=== PATIENT | male | born 1990 | race Caucasian/White ===

== ENCOUNTER 2017-03-18 22:07 | Inpatient (IN) | payer OTHER ==
[~2017-03-18] VITALS: Ht 172.7 cm; Wt 75.0 kg
[~2017-03-18 22:07] MED LIST: ASPEC325 PO; ENOX30IN4 SQ; OXYC-57 PO
[2017-03-18] MEDS ORDERED: ONDANSETRON INJ 2 MG/ML 2 ML VIAL IV STA (22:56)
[2017-03-18] MEDS ORDERED: MoRPHine SULFATE 4 MG/ML 1 ML CARP\\VIAL IV STA (22:56)
[2017-03-18 23:16] LABS: BASO % 0.1 %; BASO ABS # 0.01 K/uL (0-0.2); COMPLETE YES; EOS % 0.9 %; HEMATOCRIT 40.8 % (42-52); IG% 0.3 %; LYMPH ABS # 2.08 K/uL (1.2-3.4); MEAN CORPUSCULAR HGB CONC 35.8 g/dl (32-36); MONO % 4.3 %; NEUT % 67.4 %; PLATELET COUNT 197 K/uL (130-400); RED BLOOD COUNT 5.04 M/uL (4.7-6.1); WHITE BLOOD COUNT 7.69 K/uL (4.8-10.8)
[2017-03-18] MEDS ORDERED: HYDROmorphone INJ 1 MG/ML SYR IV STA ×2 (23:24→23:49)
[2017-03-18 23:29] LABS: URINE APPEARANCE CLEAR (CLEAR); URINE BILIRUBIN NEG (NEG); URINE COLOR YELLOW; URINE NITRITE NEG (NEG); URINE SPECIFIC GRAVITY 1.008 (1.000-1.030); UROBILINOGEN NEG (NEG); ZZUR CULT IF INDIC CLEAN CATCH NO
[2017-03-18 23:33] LABS: MANUAL MICROSCOPIC REQUIRED? NO; REVIEW REQ? NO
[2017-03-18 23:36] LABS: BLOOD UREA NITROGEN 10 mg/dl (7-18); C-REACTIVE PROTEIN < 0.29 mg/dl (0-0.29); CALCIUM 8.8 mg/dl (8.5-10.1); CARBON DIOXIDE 27 mmol/L (21-32); CHLORIDE 108 mmol/L (98-107); CREATININE 0.85 mg/dl (0.60-1.40); GLUCOSE 90 mg/dl (70-99); SODIUM 144 mmol/L (136-145)
[2017-03-19] VITALS (7 sets, daily range): BP systolic 105–122; BP diastolic 63–72; PULSE 61–66; TEMP 36.4–36.7; O2SAT 97–100; Ht 172.7 cm; Wt 75.0 kg
[2017-03-19] MEDS ORDERED: GADAVIST IV PRN (01:45)
--- NOTE | 2017-03-19 02:55 | EMERGENCY ROOM VISIT NOTE ---
History First contact with patient: 22:32 Chief Complaint: BACK PAIN Stated Complaint: SEVERE LOW BACK PAIN-LEFT LEG PAIN History of Present Illness The patient is a 26 year old male who presents to the Emergency Room with complaints of left lower back pain that raised his leg with numbness and tingling and inability to walk for the past day. Patient had 2 back surgeries of laminectomies. Last was March 05. He had a stent in [place] by Dr. Esau Rosario. Patient states he got up to go the bathroom and had severe pain and could not walk. He is present pain as severe, 10 out of 10. Movement makes it worse and nothing makes it better. Patient denies chest pain, dyspnea, fever, chills, loss of bowel or bladder control, saddle anesthesia, IV drug abuse. Patient states he is able to move the leg but is extremely painful for him. No foot drop. Review of Systems See HPI for pertinent positives & negatives. A total of 10 systems reviewed and were otherwise negative. Past Medical/Surgical History Back pain, laminectomy Social History Smoking Status: Never Smoker Smokeless Tobacco Use: No Alcohol Use: none Drug Use: none Housing Status: lives with family Current/Historical Medications No Active Prescriptions or Reported Meds Allergies Coded Allergies: No Known Allergies (Unverified , 03/18/17) Physical Exam Vital Signs Date Time Temp Pulse Resp B/P (MAP) Pulse Ox O2 Delivery O2 Flow Rate FiO2 03/19/17 03:14 64 16 104/58 98 Room Air 03/19/17 01:24 74 16 103/52 97 Room Air 03/18/17 23:16 67 20 117/55 97 Room Air 03/18/17 22:13 36.3 68 22 139/82 97 Room Air Physical Exam VITALS: Vitals are noted on the nurse's note and reviewed by myself. Vital signs stable. GENERAL: White male in obvious pain, in no acute distress, nondiaphoretic, well- developed well-nourished. SKIN: The skin was without rashes, erythema, edema, or bruising. There is no tenting of the skin. Capillary reflex less than 2 seconds. HEAD: Normocephalic atraumatic. EARS: External auditory canals clear, tympanic membranes pearly morrow without erythema or effusion bilaterally. EYES: Pupils equal round and reactive to light and accommodation. Conjunctivae without injection, sclerae without icterus. Extraocular movements intact. NOSE: Patent, turbinates without inflammation or discharge. MOUTH: Mucous membranes moist. Pharynx without erythema or exudate. Uvula midline. Airway patent. Tongue does not deviate. NECK: Supple without nuchal rigidity. No lymphadenopathy. No thyromegaly. Cervical spine is nontender. No JVD. HEART: Regular rate and rhythm without murmurs gallops or rubs. LUNGS: Clear to auscultation bilaterally without wheezes, rales or rhonchi. No dullness to percussion. No retractions or accessory muscle use. ABDOMEN: Positive bowel sounds x 4. Normal tympanic percussion. Soft, nontender, without masses or organomegaly. Ott sign negative. No guarding or rebound tenderness. MUSCULOSKELETAL: No muscle atrophy, erythema, or edema noted. No thoracic tenderness on exam. Laminectomy site intact without signs of infection. L4 5 area tender to palpation and right lower lumbar region tender to palpation. Positive straight leg raise on the left. Patellar reflexes +2 equal present bilaterally. Increased pain with range of motion of the left leg. Patient is unable and unwilling to ambulate. No foot drop. NEURO: Patient was alert and oriented to person place and time. Normal sensation to light and sharp touch. No focal neurological deficits. Medical Decision & Procedures Laboratory Results 03/18/17 23:05 Red Blood Count 5.04, Mean Corpuscular Volume 81.0, Mean Corpuscular Hemoglobin 29.0, Mean Corpuscular Hemoglobin Concent 35.8, Mean Platelet Volume 9.0, Neutrophils (%) (Auto) 67.4, Lymphocytes (%) (Auto) 27.0, Monocytes (%) (Auto) 4.3, Eosinophils (%) (Auto) 0.9, Basophils (%) (Auto) 0.1, Neutrophils # (Auto) 5.18, Lymphocytes # (Auto) 2.08, Monocytes # (Auto) 0.33, Eosinophils # (Auto) 0.07, Basophils # (Auto) 0.01 03/18/17 23:05 Test 03/18/17 23:05 03/18/17 23:10 03/18/17 23:11 White Blood Count 7.69 K/uL (4.8-10.8) Red Blood Count 5.04 M/uL (4.7-6.1) Hemoglobin 14.6 g/dL (14.0-18.0) Hematocrit 40.8 % (42-52) Mean Corpuscular Volume 81.0 fL (80-100) Mean Corpuscular Hemoglobin 29.0 pg (25-34) Mean Corpuscular Hemoglobin Concent 35.8 g/dl (32-36) Platelet Count 197 K/uL (130-400) Mean Platelet Volume 9.0 fL (7.4-10.4) Neutrophils (%) (Auto) 67.4 % Lymphocytes (%) (Auto) 27.0 % Monocytes (%) (Auto) 4.3 % Eosinophils (%) (Auto) 0.9 % Basophils (%) (Auto) 0.1 % Neutrophils # (Auto) 5.18 K/uL (1.4-6.5) Lymphocytes # (Auto) 2.08 K/uL (1.2-3.4) Monocytes # (Auto) 0.33 K/uL (0.11-0.59) Eosinophils # (Auto) 0.07 K/uL (0-0.5) Basophils # (Auto) 0.01 K/uL (0-0.2) RDW Standard Deviation 34.6 fL (36.4-46.3) RDW Coefficient of Variation 12.0 % (11.5-14.5) Immature Granulocyte % (Auto) 0.3 % Immature Granulocyte # (Auto) 0.02 K/uL (0.00-0.02) Erythrocyte Sedimentation Rate 2 mm/hr (0-14) Anion Gap 9.0 mmol/L (3-11) Est Creatinine Clear Calc Drug Dose 128.5 ml/min Estimated GFR () 140.4 Estimated GFR (Non- 121.1 BUN/Creatinine Ratio 12.0 (10-20) Calcium Level 8.8 mg/dl (8.5-10.1) C-Reactive Protein < 0.29 mg/dl (0-0.29) Bedside Lactic Acid Venous 0.73 mmol/L (0.90-1.70) Urine Color YELLOW Urine Appearance CLEAR (CLEAR) Urine pH 6.0 (4.5-7.5) Urine Specific [place] 1.008 (1.000-1.030) Urine Protein NEG (NEG) Urine Glucose (UA) NEG (NEG) Urine Ketones NEG (NEG) Urine Occult Blood NEG (NEG) Urine Nitrite NEG (NEG) Urine Bilirubin NEG (NEG) Urine Urobilinogen NEG (NEG) Urine Leukocyte Esterase NEG (NEG) Medications Administered Medications (Trade) Dose Ordered Sig/Tyshawn Route Start Time Stop Time Status Last Admin Dose Admin Morphine Sulfate (MoRPHine SULFATE INJ) 4 mg NOW STAT IV 03/18/17 22:56 03/18/17 22:58 DC 03/18/17 23:04 4 MG Ondansetron HCl (Zofran Inj) 4 mg NOW STAT IV 03/18/17 22:56 03/18/17 22:58 DC 03/18/17 23:04 4 MG Hydromorphone HCl (Dilaudid Inj) 1 mg NOW STAT IV 03/18/17 23:24 03/18/17 23:25 DC 03/18/17 23:33 1 MG Hydromorphone HCl (Dilaudid Inj) 1 mg NOW STAT IV 03/18/17 23:49 03/18/17 23:50 DC 03/18/17 23:54 1 MG ED Course Prior records/ancillary studies reviewed. Triage Nursing notes reviewed. Additional history obtained from family. The patient's history was concerning for back pain. Differential diagnosis: Etiologies such as musculoskeletal, disc herniation, fracture, aortic disease, metastatic disease, cord compression, discitis, infection, renal colic, gastrointestinal, acute exacerbation of chronic back pain, sciatica, cauda equina, as well as others were entertained. Physical findings: As above. No focal neurologic findings noted. ER treatment provided: morphine, dilaudid On reassessment the patient felt better. Diagnostics interpreted by me: The labs revealed no worrisome leukocytosis or electrolyte abnormality. Negative lactic acid. Negative sedimentation rate and CRP Imaging studies: MRI is read by stat radiology and reviewed Consultation: A consultation was placed with orthopedic spine geospatial applications developer at [facility]. The case was discussed and diagnostics were reviewed. She states she does not know this patient and cannot give exact insight. She recommends pain management, muscle relaxants and steroids. I then consulted our orthopedic spine, Dr. Mustafa and states he will be consulted on this patient if the patient is admitted. This appears to be consistent with intractable back pain. I consulted the hospitalist, Dr. Mabry's group and will evaluate the patient for possible admission for intractable back pain. Patient was neurovascularly and neurologically intact. No signs of abscess. No signs of sepsis. He was in severe amount of pain. He will be evaluated by medicine. By the evaluation outlined above emergent etiologies such as fracture, aortic disease, metastatic disease, infection, renal colic, gastrointestinal, cord compression, cauda equina, as well as others were deemed relatively unlikely. The pt informed about the findings as listed above. All questions were answered and pleased with the treatment. Case reviewed with my attending Medical Decision as above Impression Primary Impression: Intractable low back pain Departure Information Dispostion Being Evaluated By Hospitalist Condition FAIR Prescriptions No Active Prescriptions or Reported Meds Referrals No Doctor, Assigned (PCP) Patient Instructions My [facility]
--- NOTE | 2017-03-19 04:28 | History and Physical ---
History & Physical Date & Time of Service: Mar 19, 2017 at 04:28 Chief Complaint: Severe Low Back Pain-Left Leg Pain Primary Care Physician: No Doctor, Assigned History of Present Illness Source: patient 26-year-old male with past medical history of low back pain status post laminectomy 2 performed at [facility] presented to the ER with complaints of left lower back pain with numbness and tingling which started yesterday at about 5 PM. He rates the pain as 10/10 in severity in his left hip radiating down his leg. Denies any bowel or bladder incontinence, saddle anesthesia. Denies any fevers with chills. His last surgery was on March 05. Denies any chest pain, shortness of breath, abdominal pain, nausea or vomiting Past Medical/Surgical History Status post laminectomy Social History Smoking Status: Never Smoker Smokeless Tobacco Use: No Drug Use: none Housing status: lives with family Immunizations History of Influenza Vaccine: No History of Tetanus Vaccine?: No Tetanus Immunization Date: Aug 12, 2010 History of Pneumococcal: No History of Hepatitis B Vaccine: No Multi-Drug Resistant Organisms History of MDRO: No Allergies Coded Allergies: No Known Allergies (Unverified , 03/18/17) Home Medications Scheduled Methylprednisolone (Medrol Dosepak), 1 PKT PO UD Scheduled PRN Polyethylene (Miralax), 17 GM PO DAILY PRN for Constipation Review of Systems Constitutional: No fever, No chills Eyes: No worsening of vision ENT: No hearing loss Respiratory: No cough Cardiovascular: No chest pain Abdomen: No pain, No nausea, No vomiting Musculoskeletal: + joint pain (left-sided hip pain radiating down the leg) Genitourinary - Male: No hematuria, No dysuria, No urinary hesitancy, No urinary retention, No urinary incontinence Neurologic: + weakness, + numbness/tingling (along the left leg), No memory loss Psychiatric: No depression symptoms Physical Exam Vital Signs Date Time Temp Pulse Resp B/P (MAP) Pulse Ox O2 Delivery O2 Flow Rate FiO2 03/19/17 03:14 64 16 104/58 98 Room Air 03/19/17 01:24 74 16 103/52 97 Room Air 03/18/17 23:16 67 20 117/55 97 Room Air 03/18/17 22:13 36.3 68 22 139/82 97 Room Air General Appearance: WD/WN ENT: hearing grossly normal Neck: supple Respiratory/Chest: chest non-tender, lungs clear, normal breath sounds, no respiratory distress, no accessory muscle use Cardiovascular: regular rate, rhythm Abdomen/GI: normal bowel sounds, soft Extremities/Musculoskelatal: no pedal edema, + pertinent finding (painful range of motion of left leg. Positive straight leg raising ) Neurologic/Psych: alert, normal mood/affect, oriented x 3, + sensory deficit ( along the left leg ) Diagnostics Laboratory Results Results Past 24 Hours Test 03/18/17 23:05 03/18/17 23:10 03/18/17 23:11 Range/Units White Blood Count 7.69 4.8-10.8 K/uL Red Blood Count 5.04 4.7-6.1 M/uL Hemoglobin 14.6 14.0-18.0 g/dL Hematocrit 40.8 42-52 % Mean Corpuscular Volume 81.0 80-100 fL Mean Corpuscular Hemoglobin 29.0 25-34 pg Mean Corpuscular Hemoglobin Concent 35.8 32-36 g/dl Platelet Count 197 130-400 K/uL Mean Platelet Volume 9.0 7.4-10.4 fL Neutrophils (%) (Auto) 67.4 % Lymphocytes (%) (Auto) 27.0 % Monocytes (%) (Auto) 4.3 % Eosinophils (%) (Auto) 0.9 % Basophils (%) (Auto) 0.1 % Neutrophils # (Auto) 5.18 1.4-6.5 K/uL Lymphocytes # (Auto) 2.08 1.2-3.4 K/uL Monocytes # (Auto) 0.33 0.11-0.59 K/uL Eosinophils # (Auto) 0.07 0-0.5 K/uL Basophils # (Auto) 0.01 0-0.2 K/uL RDW Standard Deviation 34.6 36.4-46.3 fL RDW Coefficient of Variation 12.0 11.5-14.5 % Immature Granulocyte % (Auto) 0.3 % Immature Granulocyte # (Auto) 0.02 0.00-0.02 K/uL Erythrocyte Sedimentation Rate 2 0-14 mm/hr Sodium Level 144 136-145 mmol/L Potassium Level 4.0 3.5-5.1 mmol/L Chloride Level 108 98-107 mmol/L Carbon Dioxide Level 27 21-32 mmol/L Anion Gap 9.0 3-11 mmol/L Blood Urea Nitrogen 10 7-18 mg/dl Creatinine 0.85 0.60-1.40 mg/dl Est Creatinine Clear Calc Drug Dose 128.5 ml/min Estimated GFR () 140.4 Estimated GFR (Non- 121.1 BUN/Creatinine Ratio 12.0 10-20 Random Glucose 90 70-99 mg/dl Calcium Level 8.8 8.5-10.1 mg/dl C-Reactive Protein < 0.29 0-0.29 mg/dl Bedside Lactic Acid Venous 0.73 0.90-1.70 mmol/L Urine Color YELLOW Urine Appearance CLEAR CLEAR Urine pH 6.0 4.5-7.5 Urine Specific [place] 1.008 1.000-1.030 Urine Protein NEG NEG Urine Glucose (UA) NEG NEG Urine Ketones NEG NEG Urine Occult Blood NEG NEG Urine Nitrite NEG NEG Urine Bilirubin NEG NEG Urine Urobilinogen NEG NEG Urine Leukocyte Esterase NEG NEG Diagnostic Radiology MRI spine: Posterior left L5 and S1 laminectomies. Peripherally enhancing fluid collection at laminectomy sites. Measuring 2.5 x 2.3x 2.3 cm. This most likely represents a postoperative seroma but correlate clinically for infection. Fluid collection partially extensive the region of the left lateral recess at L5-S1. L4-L5 posterior disc bulge and facet arthritic but the and prominent enhancing tissue which likely represents scarring causes severe narrowing of left lateral recess. Mild narrowing of bilateral neural foramina. L5-S1, posterior disc/osteophyte complex. Focal extension of fluid collection and enhancing tissue at left lateral recess with resulting moderate narrowing of left lateral recess. Mild to moderate left and mild right foraminal narrowing. L3-L4, posterior disc bulge with small annular fissure. Mild resulting canal, lateral recess and foraminal narrowing. Impression Assessment and Plan 26-year-old male with past medical history of low back pain status post laminectomy 2 performed at [facility] presented to the ER with complaints of left lower back pain with numbness and tingling which started yesterday at about 5 PM. ER had contacted [facility] orthopedic surgeon cargo and container inspector who recommended he be admitted for pain control. ER then contacted Dr. Gastelum who agreed to see the patient Intractable lower back pain: Status post laminectomy - MRI spine : Peripherally enhancing fluid collection at laminectomy sites. Measuring 2.5 x 2.3x 2.3 cm. This most likely represents a postoperative seroma but correlate clinically for infection. - Pain control with morphine and Dilaudid - Spine surgery consult DVT prophylaxis: SCDs Full code Disposition: Admitted to [facility] Level of Care Med/Surg Resuscitation Status FULL RESUSCITATION VTE Prophylaxis VTE Risk Assessment Done? Y/N: Yes Risk Level: Moderate Given or contraindicated: SCD's Resident Tracking Resident Involvement: Resident Care Provided Care Provided: Adult [facility] Medicine Assessment and Plan Attending Addendum: I have physically seen and examined this patient, have directed their medical care, have supervised the medical residents activities, and agree with the H&P as noted above, with the following changes: NONE
[2017-03-19] MEDS ORDERED: ACETAMINOPHEN 325 MG TAB PO PRN (04:30)
[2017-03-19] MEDS ORDERED: POLYETHYLENE (MIRALAX) 17 GM PACK PO PRN (04:30)
[2017-03-19] MEDS ORDERED: MoRPHine SULFATE 2 MG/ML CARP IV PRN (04:30)
[2017-03-19] MEDS ORDERED: ONDANSETRON INJ 2 MG/ML 2 ML VIAL IV PRN (04:30)
[2017-03-19] MEDS ORDERED: HYDROmorphone INJ 1 MG/ML SYR IV PRN (04:30)
--- NOTE | 2017-03-19 07:40 | DIAGNOSTIC IMAGING REPORT ---
LUMBAR SPINE MRI WITH AND WITHOUT CONTRAST HISTORY: Left leg pain. recent laminectomy, severe pain/can't walk TECHNIQUE: Multiplanar multisequence MRI of the lumbar spine was performed both before and after the intravenous administration of contrast. COMPARISON: None. FINDINGS: For the purpose of the report the L5-S1 disc space will be located on axial image 27 of 30. Alignment and curvature intact. No acute fractures within the lumbar spine. Moderate disc space narrowing at L4-L5 and L5-S1. Mild disc space narrowing at L3-L4. The conus terminates at the T12-L1 disc space. Postoperative changes consistent with a left L5-S1 hemilaminectomy small amount of fluid within the soft tissues posterior to the laminectomy site is likely due to postoperative change. L1-L2: No significant central canal or neural foraminal narrowing. L2-L3: No significant central canal or neural foraminal narrowing. L3-L4: Broad-based posterior disc bulge with a central annular tear. No significant central canal or neural foraminal narrowing. L4-L5: Prominent left paracentral enhancing soft tissue which measures 1.3 cm. This results in mild impression upon the thecal sac and surrounds the transiting left L5 nerve root. L5-S1: Small broad-based posterior disc bulge. There is a peripherally enhancing fluid collection at the laminectomy site which extends to the left lateral recess best seen on axial postcontrast sequences images 22 through 30. This fluid collection measures approximately 3.7 x 2.7 cm. This results in mild mass effect along the left side of the thecal sac and partially surrounds the transiting left S1 nerve root. IMPRESSION: Status post left L5-S1 hemilaminectomy. There is a peripheral enhancing fluid collection at the laminectomy site which extends to the left lateral recess and results in mild mass effect along the left side of the thecal sac. This also partially surrounds the transiting left S1 nerve root. This could represent a postoperative seroma or abscess in the appropriate clinical setting. There is also focal area of enhancing soft tissue within the left lateral recess at the L4-L5 disc space level resulting in mild mass effect along the thecal sac and partially surrounding the transiting left L5 nerve root. This could represent postoperative granulation tissue or phlegmon. Electronically signed by: Nikolai Castillo M.D. 03/19/2017 7:39 AM Dictated Date/Time: 03/19/2017 7:25 AM
--- NOTE | 2017-03-19 08:50 | HISTORY & PHYSICAL EXAMINATION ---
DATE OF ADMISSION: 03/19/2017 CHIEF COMPLAINT: Back pain, buttock and left lower extremity difficulties. HISTORY OF PRESENT ILLNESS: Justice is a pleasant young gentleman. He is 26 years of age. He presented to the Emergency Room this morning 2:00 or 3:00 in the morning with back and lower extremity difficulty, fairly incapacitated. The ER staff worked hard to try to get him home but they failed. I was called at about 4:00 in the morning to see if we could admit the patient for pain management and I will be the supervising physician for his spinal pathology. As stated, he is 26. He has had 2 surgeries performed at [facility] on his spine, the last one was only 12 days ago. SURGICAL HISTORY: Post-laminectomy x2. PAST MEDICAL HISTORY: No hypertension, COPD, diabetes. SOCIAL HISTORY: Nonsmoker, nondrug user. IMMUNIZATIONS: Negative. He is an [place] individual. ALLERGIES: No allergies. REVIEW OF SYSTEMS: He has no fevers, sweats, chills, confusion. Ears, eyes, nose and throat normal. Denies any chest pain, shortness of breath. No nausea, vomiting, urgency, frequency. He admits to some buttock pain, left lower extremity difficulty, paresthesias on the left hand side, nothing on the right hand side. No apparent depression. PHYSICAL EXAMINATION: VITAL SIGNS: Stable, 36.3 temperature, pulse 68 and regular, 117/55 blood pressure. GENERAL: He is alert, oriented, conversant. His is here with him. He makes perfect sense. He is in no distress in the supine position. HEENT: Normal. CHEST, HEART AND LUNGS: Normal. ABDOMEN: Soft, nontender. No referred pain. WBC 7.69, hemoglobin 14.6. IMAGES: I looked at his images quite rigorously. He has evidence of prior laminectomy L5 and S1. There is a small seroma present, I do not think it is the cause of his pain, but it is possible of course. He has a bulging disc at L4-L5, I think his surgery may have been the L4-L5 level, it is hard to tell. At L5-S1, although it was not reported, I think he has a very low-grade spondylolisthesis. A standing x-ray, we let him stand for about 10 minutes, would bring out the spondylolisthesis. Both discs at L4-L5 and L5-S1 are degenerative. IMPRESSION: Delightful young gentleman with back and lower extremity difficulty with no gross neurological deficit, subjective history of pain, otherwise very healthy. Two recent spine surgeries, one in 11/2016, the second one 03/05/2017. Radiographically, he has a small seroma present which could be the source of pain, I think more likely it might be a very low-grade spondylolisthesis. DISPOSITION: We will control his pain here today, I think he will be stable to go home later on today with appropriate medications. I suggest some steroids such as a Medrol Dosepak or alternative. Toradol is a good anti-inflammatory. He can be home rest with ice. A mild narcotic is also appropriate as well. He is comfortable supine, so I believe he can do that activity at home. I explained to him and his that I would prefer they have followup care with their surgeon as the surgery was only 12 days ago.
[2017-03-19] MEDS ORDERED: OXYCODONE/ACETAMINOPHEN 10/325MG TAB PO PRN (10:30)
[2017-03-19] MEDS ORDERED: METHYLPREDNISOLONE 4MG TAB, 6 DAY TAPER PO SCH (10:30)
[2017-03-19] MEDS ORDERED: OXYCODONE/ACETAMINOPHEN 5-325 TAB PO PRN ×2 (10:30→16:30)
[2017-03-19] MEDS ORDERED: DEXAMETHASONE INJ 6 MG in SYRINGE 0 ML IV ONE (12:00)
[2017-03-19] MEDS ORDERED: METHYLPREDNISOLONE 4 MG TAB PO SCH ×3 (13:00→21:00)
--- NOTE | 2017-03-19 13:44 | Discharge Instructions ---
Discharge Instructions Date of Service Mar 19, 2017. Admission Reason for Admission: Intractable Low Back Pain Discharge Discharge Diagnosis / Problem: Intractable Low back pain secondary to laminectomy Discharge Goals Goal(s): Decrease discomfort, Improve function, Increase independence, Improve disease control Activity Recommendations Activity Limitations: per Instructions/Follow-up section Lifting Limitations: no more than 10 pounds, gradually increase as tolerated Exercise/Sports Limitations: rest today, until after follow-up appointment May Resume Sexual Activity: after follow-up appointment Shower/Bathe: no limitations Driving or Machine Use: no limitations . Instructions / Follow-Up Instructions / Follow-Up You were admitted to [facility] with intractable lower back pain secondary to laminectomy. During your stay here you were treated with intravenous pain medications, steroids, and were seen by physical therapy. Imaging studies which were completed include MRI of the lumbar spine- you have been given a disk and copies of the report to give to your family and orthopedic physician. Your pain improved and you were stable to discharge - Continue working with physical therapy as directed by your orthopedic spinal surgeon. Continue taking all medications as prescribed. - You have been given a prescription for a medrol dose pack to help reduce inflammation - Continue taking percocet 5 mg tablets, every 4 hours as needed for pain. You did not require a new prescription as you have these at home. - Continue using stool softeners and fiber agents to help your bowels move while taking narcotics (percocet), you have been given as prescription for mirilax. Follow up: Follow up with your Primary Care Provider within [address] Esau Ham MD.at the next available appointment. -Appointments have been requested/scheduled for you. Current Hospital Diet Patient's current hospital diet: Regular Diet Discharge Diet Recommended Diet: Regular Diet Procedures Procedures Performed: None Pending Studies Studies pending at discharge: no Medical Emergencies . Who to Call and When: Medical Emergencies: If at any time you feel your situation is an emergency, please call 911 immediately. . Non-Emergent Contact Non-Emergency issues call your: Primary Care Provider, Surgeon Call Non-Emergent contact if: you have a fever, temperature is above 100.5, your pain is not controlled, your pain is worsening, your pain is unusual for you, your pain is concerning you, you have any medication questions . Past History Medical & Surgical History: (1) Intractable low back pain . "Provider Documentation" section prepared by Mary Watson. . VTE Core Measure Inpt VTE Proph given/why not?: SCD's
[2017-03-19] MEDS ORDERED: METH4PAK PO (13:49)
[2017-03-19] MEDS ORDERED: MRLP17X PO (13:49)
--- NOTE | 2017-03-19 14:14 | Discharge Summary ---
Discharge Summary Date of Service Mar 19, 2017. (Joselin Watson PA-C) Discharge Summary Admission Date: Mar 19, 2017 at 04:25 Discharge Date: Mar 19, 2017 Discharge Disposition: Home Principal Diagnosis: Intractable low back pain Immunizations: Have You Had Influenza Vaccine: No History of Tetanus Vaccine?: No Tetanus Immunization Date: Aug 12, 2010 History of Pneumococcal: No History of Hepatitis B Vaccine: No Procedures: LUMBAR SPINE MRI WITH AND WITHOUT CONTRAST 03/18/17 HISTORY: Left leg pain. recent laminectomy, severe pain/can't walk TECHNIQUE: Multiplanar multisequence MRI of the lumbar spine was performed both before and after the intravenous administration of contrast. COMPARISON: None. FINDINGS: For the purpose of the report the L5-S1 disc space will be located on axial image 27 of 30. Alignment and curvature intact. No acute fractures within the lumbar spine. Moderate disc space narrowing at L4-L5 and L5-S1. Mild disc space narrowing at L3-L4. The conus terminates at the T12-L1 disc space. Postoperative changes consistent with a left L5-S1 hemilaminectomy small amount of fluid within the soft tissues posterior to the laminectomy site is likely due to postoperative change. L1-L2: No significant central canal or neural foraminal narrowing. L2-L3: No significant central canal or neural foraminal narrowing. L3-L4: Broad-based posterior disc bulge with a central annular tear. No significant central canal or neural foraminal narrowing. L4-L5: Prominent left paracentral enhancing soft tissue which measures 1.3 cm. This results in mild impression upon the thecal sac and surrounds the transiting left L5 nerve root. L5-S1: Small broad-based posterior disc bulge. There is a peripherally enhancing fluid collection at the laminectomy site which extends to the left lateral recess best seen on axial postcontrast sequences images 22 through 30. This fluid collection measures approximately 3.7 x 2.7 cm. This results in mild mass effect along the left side of the thecal sac and partially surrounds the transiting left S1 nerve root. IMPRESSION: Status post left L5-S1 hemilaminectomy. There is a peripheral enhancing fluid collection at the laminectomy site which extends to the left lateral recess and results in mild mass effect along the left side of the thecal sac. This also partially surrounds the transiting left S1 nerve root. This could represent a postoperative seroma or abscess in the appropriate clinical setting. There is also focal area of enhancing soft tissue within the left lateral recess at the L4-L5 disc space level resulting in mild mass effect along the thecal sac and partially surrounding the transiting left L5 nerve root. This could represent postoperative granulation tissue or phlegmon. Electronically signed by: Nikolai Castillo M.D. 03/19/2017 7:39 AM Dictated Date/Time: 03/19/2017 7:25 AM The status of this report is Signed. Consultations: Orthopedic Spine (Joselin Watson, IRENE) Medication Reconciliation New Medications: Methylprednisolone (Medrol Dosepak) 4 Mg [place] 1 PKT PO UD for 6 Days, #1 PKT Polyethylene (Miralax) 17 Gm Pow 17 GM PO DAILY PRN for Constipation for 30 Days, #30 DOSE Discharge Exam The patient was seen and examined this morning. Pt reports his pain is better this morning. He received a dose of dilaudid at midnight and then again this morning at ~7:45a. He reports being able to move his leg more this morning. He tolerated a normal diet today, and was able to get up and walk with physical therapy. He does report a numbness in his left foot which goes up to the point of the ankle. This is slightly improved since last night but still there. Review of Systems: Constitutional: No fever, No chills, No sweats, No fatigue Eyes: No discharge, No diplopia ENT: No sore throat, No tinnitus Respiratory: No cough, No sputum, No wheezing, No shortness of breath Cardiovascular: No chest pain, No palpitations Abdomen: No pain, No nausea, No vomiting, No diarrhea, No constipation Musculoskeletal: No joint pain, No swelling, No calf pain Genitourinary - Male: No hematuria, No dysuria, No urinary incontinence, No impotence Neurologic: + numbness/tingling, No paralysis, No weakness Psychiatric: No depression symptoms, No anxiety Endocrine: No fatigue Integumentary: No rash, No itch Physical Exam: General Appearance: WD/WN, no apparent distress Eyes: PERRL, EOMI ENT: hearing grossly normal, pharynx normal Neck: supple, no JVD Respiratory/Chest: lungs clear, no respiratory distress, no accessory muscle use Cardiovascular: regular rate, rhythm, no murmur, normal peripheral pulses Abdomen / GI: normal bowel sounds, non tender, soft Extremities: normal inspection, no calf tenderness, no pedal edema Neurologic/Psychiatric: no motor/sensory deficits, alert, oriented x 3 Skin: normal color, warm/dry (Joselin Watson, IRENE) Hospital Course H&P per Monae Khan MD. Resident History of Present Illness Source: patient 26-year-old male with past medical history of low back pain status post laminectomy 2 performed at [facility] presented to the ER with complaints of left lower back pain with numbness and tingling which started yesterday at about 5 PM. He rates the pain as 10/10 in severity in his left hip radiating down his leg. Denies any bowel or bladder incontinence, saddle anesthesia. Denies any fevers with chills. His last surgery was on March 05. Denies any chest pain, shortness of breath, abdominal pain, nausea or vomiting Physical Exam Vital Signs Date Time Temp Pulse Resp B/P (MAP) Pulse Ox O2 Delivery O2 Flow Rate FiO2 03/19/17 03:14 64 16 104/58 98 Room Air 03/19/17 01:24 74 16 103/52 97 Room Air 03/18/17 23:16 67 20 117/55 97 Room Air 03/18/17 22:13 36.3 68 22 139/82 97 Room Air General Appearance: WD/WN ENT: hearing grossly normal Neck: supple Respiratory/Chest: chest non-tender, lungs clear, normal breath sounds, no respiratory distress, no accessory muscle use Cardiovascular: regular rate, rhythm Abdomen/GI: normal bowel sounds, soft Extremities/Musculoskelatal: no pedal edema, + pertinent finding (painful range of motion of left leg. Positive straight leg raising ) Neurologic/Psych: alert, normal mood/affect, oriented x 3, + sensory deficit ( along the left leg ) Hospital Course: Intractable lower back pain: Status post laminectomy on 03/05/17. First surgery was in Nov 2016 for herniated disk. Both completed at [facility] - MRI spine : Peripherally enhancing fluid collection at laminectomy sites. Measuring 2.5 x 2.3x 2.3 cm. This most likely represents a postoperative seroma but correlate clinically for infection. See report above. Disk was copied for the patient and reports were faxed to Dr. Esua Ham who performed his surgery - Pain control with morphine, Dilaudid, and was discharged on oral percocet which he has been using at home. - Bowel regimen is in place with stool softeners, a Rx for mirilax was given today. - Started the patient on decadron IV today to help reduce inflammation. Will continue on a medrol dose pack at time of discharge. - PT/OT evaluated the patient - pt should continue as an outpatient - PT had no motor weakness on exam and numbness to the left foot was improving prior to discharge. - Follow up was arranged with his orthopedic surgeon, Esau Ham for his next available appointment, along with PCP f/u within 1 week. Total Time Spent: Greater than 30 minutes This includes examination of the patient, discharge planning, medication reconciliation, and communication with other providers. (Joselin Watson PA-C) PA Physician Supervision Note: I interviewed and examined the patient. Discussed with Joselin Watson pac and agree with findings and plan as documented in the note. Any exceptions or clarifications are listed here: None 26-year-old male with intractable radicular low back pain with past medical history of low back pain status post laminectomy 2 performed at [facility], IMaging suggests fluid collection at surgical sites, undetermined significance Pt feels better despite no intervention , surgery feels safe to go home on pain control and steroid taper vitals stable, no decrease in muscular strength but pain withSLR R>L Ok to discharge and follow up as out pt Documented By: Nba Solares (Nba Solares M.D.) Discharge Instructions Please refer to the electronic Patient Visit Report (Discharge Instructions) for additional information. (Joselin Watson PA-C) Follow-Up Follow up with your Primary Care Provider within 1 week. Follow up with orthospine at the next available appointment. (Joselin Watson PA-C)
[2017-03-20] MEDS ORDERED: METHYLPREDNISOLONE 4 MG TAB PO SCH ×2 (07:00→21:00)
[2017-03-21] MEDS ORDERED: METHYLPREDNISOLONE 4 MG TAB PO SCH (07:00)
[2017-03-22] MEDS ORDERED: METHYLPREDNISOLONE 4 MG TAB PO SCH (07:00)
[2017-03-23] MEDS ORDERED: METHYLPREDNISOLONE 4 MG TAB PO SCH (07:00)
[2017-03-24] MEDS ORDERED: METHYLPREDNISOLONE 4 MG TAB PO SCH (07:00)
== END 2017-03-19 18:30 | disposition home or self-care (01) | DRG 921 ==
LOC: C.EDB 22:08 → C.3E 03-19 04:25 → ENRESERV 03-19 04:41
PROVIDERS: ADMIT Family Medicine; ATTEND Internal Medicine
DX: M96.842 Postprocedural seroma of a musculoskeletal structure following a musculoskeletal system procedure (principal); G89.18 Other acute postprocedural pain; Y83.8 Other surgical procedures as the cause of abnormal reaction of the patient, or of later complication, without mention of misadventure at the time of the procedure; M43.16 Spondylolisthesis, lumbar region; M51.16 Intervertebral disc disorders with radiculopathy, lumbar region; Z98.890 Other specified postprocedural states